=== PATIENT | male | born 1960 | race Caucasian/White ===

== ENCOUNTER 2018-06-30 23:25 | Emergency (ER) | payer OTHER ==
--- OUTSIDE RECORDS SUMMARY | 2018-06-30 23:27 | XMS REPORT ---
:1960 Author Organization eClinicalWorks Care Team Providers Name Role Phone Kristofer Cardoso Provider Role Unavailable Allergies, Adverse Reactions, Alerts Substance Reaction Event Type N.K.D.A. Info Not Available Non Drug Allergy Problems Problem Type Condition Code Onset Dates Condition Status Assessment Need for Tdap vaccination Z23 Active Assessment HTN (hypertension), benign I10 Active Problem Adult BMI 45.0-49.9 kg/sq m Z68.42 Active Problem HTN (hypertension), benign I10 Active Assessment Screening for colon cancer Z12.11 Active Assessment Encounter for screening for other Z11.59 Active viral diseases Assessment Encounter for preventative adult Z00.01 Active health care exam with abnormal findings Assessment Adult BMI 45.0-49.9 kg/sq m Z68.42 Active Medications Medication Code System Code Instructions Start Date End Date Status Dosage Lisinopril [facility] 34864620045 10 MG Orally Once Feb 20, Active 1 tablet a day 2018 Results No Known Results Immunizations Vaccine Administration Date TDAP > 7 Years-Adacel Feb 20, 2018 Summary Purpose eClinicalWorks Submission
--- OUTSIDE RECORDS SUMMARY | 2018-06-30 23:27 | XMS REPORT ---
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 Active Problem Prediabetes R73.03 Active Problem Mixed hyperlipidemia E78.2 Active Assessment HTN (hypertension), benign I10 Active Problem Adult BMI 45.0-49.9 kg/sq m Z68.42 Active Problem HTN (hypertension), benign I10 Active Medications Medication Code Code Instructions Start End Status Dosage System Date Date Aspirin 81 [facility] 74611997830 81 MG Orally Active 1 tablet Once a day Atorvastatin [facility] 86130340524 10 MG Orally Mar 06, Active 1 tablet Calcium Once a day 2017 Lisinopril [facility] 28082281015 10 MG Orally Active 1 tablet Once a day Results No Known Results Summary Purpose eClinicalWorks Submission
--- OUTSIDE RECORDS SUMMARY | 2018-06-30 23:28 | XMS REPORT ---
:1960 Author Organization eClinicalWorks Care Team Providers Name Role Phone Jacky Hillman Provider Role Unavailable Allergies, Adverse Reactions, Alerts Substance Reaction Event Type N.K.D.A. 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
[2018-07-01 01:17] LABS: Absolute Lymphocytes (CBC) 1.7 K/uL (0.7-4.9); Absolute Monocytes 0.7 K/uL (0.1-1.3); Absolute Neutrophil 5.9 K/uL (1.8-8.0); Basophils % 0.9 % (0-1.3); Eosinophils % 0.5 % (0-4.4); MCH 30.7 pg (27.0-35.0); MCV 90.3 fL (80-100); MPV 9.5 fL (7.6-11.3); Monocytes % 8.4 % (3.3-12.3); RBC Red Blood Cell Count 4.76 M/uL (4.33-5.43)
[2018-07-01 01:37] LABS: BUN Blood Urea Nitrogen 13 mg/dL (7-18); Bicarbonate 25 mmol/L (21-32); Glucose Level 113 mg/dL (74-106); Potassium 3.6 mmol/L (3.5-5.1); Sodium Level 139 mmol/L (136-145); Troponin (Emerg Dept Use Only) < 0.02 ng/mL (0.0-0.045)
--- NOTE | 2018-07-01 01:39 | EDPHYS ---
Physician Documentation [facility] Name: Theodore Schaeffer Age: 58 yrs Sex: Male : 1960 Arrival Date: 06/30/2018 Time: 23:28 Bed 15 Private MD: Kaci Cardosoh ED Physician Grupo Blackburn HPI: 07/01 00:51 This 58 yrs old Male presents to ER via Ambulatory with complaints of Blood kb Pressure Problem. 00:51 The patient has elevated blood pressure and discovered this at home, with a home kb device. Onset: The symptoms/episode began/occurred yesterday. Associated signs and symptoms: Pertinent positives: anxiety and palpitations. Severity of symptoms: At its worst the blood pressure was moderate, 183 mm Hg. The patient has not experienced similar symptoms in the past. The patient has not recently seen a physician. Pt reports his daughter called him yesterday and told him she had been in an accident. Reports his bp has been high ever since then. States he laid down tonight to go to sleep and he felt a few palpitations . Historical: - Allergies: 06/30 23:41 No Known Allergies; fc - Home Meds: 23:41 lisinopril 10 mg Oral tab 1 tab once daily [Active]; atorvastatin 10 mg oral tab 1 tab fc once daily [Active]; - PMHx: 23:41 Hypertension; High Cholesterol; fc - PSHx: 23:41 None; fc - Immunization history:: Last tetanus immunization: unknown, Flu vaccine is not up to date. - Social history:: Smoking status: Patient/guardian denies using tobacco, Patient/guardian denies using alcohol. - Ebola Screening: : Patient negative for fever greater than or equal to 101.5 degrees Fahrenheit, and additional compatible Ebola Virus Disease symptoms Patient denies exposure to infectious person Patient denies travel to an Ebola-affected area in the 21 days before illness onset. ROS: 07/01 00:50 Constitutional: Negative for fever, chills, and weight loss, ENT: Negative for injury, kb pain, and discharge, Neck: Negative for injury, pain, and swelling, Respiratory: Negative for shortness of breath, cough, wheezing, and pleuritic chest pain, Abdomen/GI: Negative for abdominal pain, nausea, vomiting, diarrhea, and constipation, Back: Negative for injury and pain, MS/Extremity: Negative for injury and deformity, Skin: Negative for injury, rash, and discoloration, Neuro: Negative for headache, weakness, numbness, tingling, and seizure. Cardiovascular: Positive for palpitations, Negative for chest pain, edema, orthopnea, paroxysmal nocturnal dyspnea. Exam: 00:50 Constitutional: This is a well developed, well nourished patient who is awake, alert, kb and in no acute distress. Head/Face: Normocephalic, atraumatic. ENT: Nares patent. No nasal discharge, no septal abnormalities noted. Tympanic membranes are normal and external auditory canals are clear. Oropharynx with no redness, swelling, or masses, exudates, or evidence of obstruction, uvula midline. Mucous membranes moist. Neck: Trachea midline, no thyromegaly or masses palpated, and no cervical lymphadenopathy. Supple, full range of motion without nuchal rigidity, or vertebral point tenderness. No Meningismus. Chest/axilla: Normal chest wall appearance and motion. Nontender with no deformity. No lesions are appreciated. Cardiovascular: Regular rate and rhythm with a normal S1 and S2. No gallops, murmurs, or rubs. Normal PMI, no JVD. No pulse deficits. Respiratory: Lungs have equal breath sounds bilaterally, clear to auscultation and percussion. No rales, rhonchi or wheezes noted. No increased work of breathing, no retractions or nasal flaring. Abdomen/GI: Soft, non-tender, with normal bowel sounds. No distension or tympany. No guarding or rebound. No evidence of tenderness throughout. Skin: Warm, dry with normal turgor. Normal color with no rashes, no lesions, and no evidence of cellulitis. MS/ Extremity: Pulses equal, no cyanosis. Neurovascular intact. Full, normal range of motion. Neuro: Awake and alert, GCS 15, oriented to person, place, time, and situation. Cranial nerves II-XII grossly intact. Motor strength 5/5 in all extremities. Sensory grossly intact. Cerebellar exam normal. Normal gait. Vital Signs: 06/30 23:37 BP 150 / 108; Pulse 85; Resp 18; Temp 98.4(O); Pulse Ox 96% on R/A; Weight 145.15 kg fc (R); Height 6 ft. 0 in. (182.88 cm) (R); Pain 0/10; 07/01 00:30 BP 133 / 90; Pulse 76; Resp 16; Pulse Ox 97% on R/A; jb4 01:30 BP 123 / 81; Pulse 68; Resp 16; Pulse Ox 99% on R/A; jb4 06/30 23:37 Body Mass Index 43.40 (145.15 kg, 182.88 cm) MDM: 00:06 Patient medically screened. kb 00:50 Data reviewed: vital signs, nurses notes. Data interpreted: Pulse oximetry: on room air kb is 96 %. Interpretation: normal. Counseling: I had a detailed discussion with the patient and/or guardian regarding: the historical points, exam findings, and any diagnostic results supporting the discharge/admit diagnosis, lab results, radiology results, the need for outpatient follow up, a family practitioner, to return to the emergency department if symptoms worsen or persist or if there are any questions or concerns that arise at home. 07/01 00:46 Order name: CBC with Diff; Complete Time: 01:22 kb 07/01 00:46 Order name: Basic Metabolic Panel; Complete Time: 01:37 kb 07/01 00:21 Order name: EKG; Complete Time: 00:22 kb 07/01 00:21 Order name: EKG - Nurse/Tech; Complete Time: 00:23 kb 07/01 00:46 Order name: Troponin (emerg Dept Use Only); Complete Time: 01:37 kb 07/01 00:46 Order name: Chest Single View XRAY kb Administered Medications: No medications were administered Disposition: 07/01/18 01:38 Discharged to Home. Impression: Essential (primary) hypertension. - Condition is Stable. - Discharge Instructions: Hypertension, [id number], Managing Your Hypertension. - Medication Reconciliation Form, Thank You Letter, Antibiotic Education, Prescription Opioid Use form. - Follow up: Emergency Department; When: As needed; Reason: Worsening of condition. Follow up: Private Physician; When: 2 - 3 days; Reason: Recheck today's complaints, Continuance of care, Re-evaluation by your physician. Signatures: Dispatcher [employer] EDIla Edmond, Chacha Bowman RN RN Kameron Kraft RN RN jb4 Corrections: (The following items were deleted from the chart) 01:55 01:38 07/01/2018 01:38 Discharged to Home. Impression: Essential (primary) jb4 hypertension. Condition is Stable. Forms are Medication Reconciliation Form, Thank You Letter, Antibiotic Education, Prescription Opioid Use. Follow up: Emergency Department; When: As needed; Reason: Worsening of condition. Follow up: Private Physician; When: 2 - 3 days; Reason: Recheck today's complaints, Continuance of care, Re-evaluation by your physician. kb
--- NOTE | 2018-07-01 01:39 | ER ---
Nurse's Notes [facility] Name: Theodore Schaeffer Age: 58 yrs Sex: Male : 1960 Arrival Date: 06/30/2018 Time: 23:28 Bed 15 Private MD: Kristofer Cardoso Diagnosis: Essential (primary) hypertension Presentation: 06/30 23:37 Presenting complaint: Patient states: that he noticed yesterday that he was having fc issues with high bp. Denies any pain but states that he gets shaky and cannot sleep. States that he is very anxious and thinks this may be causing his high bp. Transition of care: patient was not received from another setting of care. Onset of symptoms was June 29, 2018. Risk Assessment: Do you want to hurt yourself or someone else? Patient reports no desire to harm self or others. Initial Sepsis Screen: Does the patient meet any 2 criteria? No. Patient's initial sepsis screen is negative. Does the patient have a suspected source of infection? No. Patient's initial sepsis screen is negative. Care prior to arrival: None. 23:37 Method Of Arrival: Ambulatory fc 23:37 Acuity: ABDIRASHID 3 fc Historical: - Allergies: 23:41 No Known Allergies; fc - Home Meds: 23:41 lisinopril 10 mg Oral tab 1 tab once daily [Active]; atorvastatin 10 mg oral tab 1 tab fc once daily [Active]; - PMHx: 23:41 Hypertension; High Cholesterol; fc - PSHx: 23:41 None; fc - Immunization history:: Last tetanus immunization: unknown, Flu vaccine is not up to date. - Social history:: Smoking status: Patient/guardian denies using tobacco, Patient/guardian denies using alcohol. - Ebola Screening: : Patient negative for fever greater than or equal to 101.5 degrees Fahrenheit, and additional compatible Ebola Virus Disease symptoms Patient denies exposure to infectious person Patient denies travel to an Ebola-affected area in the 21 days before illness onset. Screenin/17 00:00 Abuse screen: Denies threats or abuse. Nutritional screening: No deficits noted. jb4 Tuberculosis screening: No symptoms or risk factors identified. Fall Risk None identified. Assessment: 00:05 General: Appears in no apparent distress. uncomfortable, Behavior is cooperative, jb4 anxious. Pain: Denies pain. Neuro: Level of Consciousness is awake, alert, obeys commands, Oriented to person, place, time, situation. Cardiovascular: Heart tones S1 S2 present Patient's skin is warm and dry. Respiratory: Airway is patent Respiratory effort is even, unlabored, Respiratory pattern is regular, symmetrical, Breath sounds are clear bilaterally. GI: No signs and/or symptoms were reported involving the gastrointestinal system. : No signs and/or symptoms were reported regarding the genitourinary system. EENT: No signs and/or symptoms were reported regarding the EENT system. Derm: Skin is intact, Skin is pink, warm \T\ dry. Musculoskeletal: Circulation, motion, and sensation intact. 01:30 Reassessment: Patient appears in no apparent distress at this time. Patient and/or jb4 family updated on plan of care and expected duration. Pain level reassessed. Patient is alert, oriented x 3, equal unlabored respirations, skin warm/dry/pink. 01:53 Reassessment: Patient appears in no apparent distress at this time. Patient and/or jb4 family updated on plan of care and expected duration. Pain level reassessed. Patient is alert, oriented x 3, equal unlabored respirations, skin warm/dry/pink. Discussed D/c, F/u with pt, denies questions or concerns. Vital Signs: 06/30 23:37 BP 150 / 108; Pulse 85; Resp 18; Temp 98.4(O); Pulse Ox 96% on R/A; Weight 145.15 kg fc (R); Height 6 ft. 0 in. (182.88 cm) (R); Pain 0/10; 07/01 00:30 BP 133 / 90; Pulse 76; Resp 16; Pulse Ox 97% on R/A; jb4 01:30 BP 123 / 81; Pulse 68; Resp 16; Pulse Ox 99% on R/A; jb4 06/30 23:37 Body Mass Index 43.40 (145.15 kg, 182.88 cm) ED Course: 06/30 23:28 Patient arrived in ED. es 23:28 Kristofer Cardoso DO is Private Physician. es 23:37 Arm band placed on Patient placed in an exam room, on a stretcher. fc 23:39 Triage completed. 07/01 00:05 Patient has correct armband on for positive identification. Bed in low position. Call jb4 light in reach. Side rails up X 1. Pulse ox on. NIBP on. 00:06 Ila Lagunas FNP-C is PHCP. kb 00:06 Grupo Blackburn MD is Attending Physician. kb 00:15 Kameron Kraft, RN is Primary Nurse. jb4 00:59 X-ray completed. Portable x-ray completed in exam room. Patient tolerated procedure sg4 well. 01:01 Chest Single View XRAY In Process Unspecified. EDMS 01:05 Inserted saline lock: 20 gauge in right antecubital area, using aseptic technique. jb4 01:54 No provider procedures requiring assistance completed. IV discontinued, intact, jb4 bleeding controlled. Administered Medications: No medications were administered Outcome: 01:38 Discharge ordered by . kb 01:50 Discharged to home ambulatory. jb4 01:50 Condition: stable 01:50 Discharge instructions given to patient, Instructed on discharge instructions, follow up and referral plans. Demonstrated understanding of instructions, follow-up care. 01:55 Patient left the ED. jb4 Signatures: Dispatcher [employer] EDVT Ila Lagunas FNP-C FNP-Saba Schneider Felicia, RN RN fc Bryson, James, RN RN [facility] Carey Murray 4 Corrections: (The following items were deleted from the chart) 06/30 23:40 23:37 Presenting complaint: Patient states: that he noticed yesterday that he was fc having issues with high bp. Denies any pain but states that he gets shaky and cannot sleep. fc
--- NOTE | 2018-07-01 07:03 | EKG ---
Test Date: 2018-07-01 Test Time: 00:16:14 Mortgage Field Inspector: LEWIS MEASUREMENT RESULTS: Intervals: Rate: 70 MN: 168 QRSD: 92 QT: 392 QTc: 423 Cartwright: P: 27 MN: 168 QRS: -6 T: 8 INTERPRETIVE STATEMENTS: Normal sinus rhythm Normal ECG No previous ECG available for comparison Electronically Signed On 07-01-18 07:02:53 SEAMAN OFFICER by Darío Be
--- NOTE | 2018-07-01 08:47 | RAD REPORT ---
EXAM DESCRIPTION: Doe Single View07/01/2018 1:01 am CLINICAL HISTORY: Palpitations COMPARISON: none FINDINGS: The lungs appear clear of acute infiltrate. The heart is normal size IMPRESSION: No acute abnormalities displayed
== END 2018-07-01 01:55 | disposition home or self-care (01) ==
LOC: ER 23:25
DX: I10 Essential (primary) hypertension (principal); E78.00 Pure hypercholesterolemia, unspecified
CPT/HCPCS: 36415; 71045; 80048; 84484; 85025; 93005; 99283

== ENCOUNTER 2018-07-05 07:16 | Day surgery (SDC) | payer OTHER ==
[2018-07-05] MEDS ORDERED: Ringers Lactate 1,000 ML IV ONE (07:29)
[2018-07-05] MEDS ORDERED: PROPOFOL 200 MG/20 ML VIAL IV ONE ×2 (08:55)
--- NOTE | 2018-07-05 09:19 | ENDO RPT ---
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 ESTIMATED BLOOD LOSS: None CONSENT: The patient understands the risks and benefits of the procedure and understands that these risks include, but are not limited to: sedation, allergic reaction, infection, perforation and/or bleeding. Alternative means of evaluation and treatment include, among others: physical exam, x-rays, and/or surgical intervention. The patient elects to proceed with this endoscopic procedure. DESCRIPTION OF PROCEDURE: During intra-op preparation period all mechanical medical equipment was checked for proper function. Hand hygiene and appropriate measures for infection prevention was taken. Procedure, possible complications, alternatives including, but not limited to possibility of bleeding, perforation, tear, infection, sepsis, need for surgery, need for blood transfusion, were explained to the patient. After the risks, benefits and alternatives of the procedure were thoroughly explained, Informed consent was verified, confirmed and timeout was successfully executed by the treatment team. The patient was placed in the left lateral position. A digital rectal exam was performed and revealed internal hemorrhoids. After appropriate level of anesthesia, the scope was passed. The EC-[id number] ([id number]) endoscope was introduced through the anus and advanced to the cecum, which was identified by both the appendix and ileocecal valve. The quality of the prep was fair. The instrument was then slowly withdrawn as the colon was fully examined. Scope withdrawal time was 8 minutes. COLON FINDINGS: Moderate sized internal hemorrhoids were found. The colon mucosa was otherwise normal. Retroflexed views revealed medium hemorrhoids. The scope was then completely withdrawn from the patient and the procedure terminated. ADVERSE EVENTS: There were no complications. IMPRESSIONS: 1. Moderate sized internal hemorrhoids 2. The colon mucosa was otherwise normal RECOMMENDATIONS: 1. fiber rich diet 2. yearly hemoccult starting in 4 years 3. hemorrhoidal hygiene RECALL: Return in 10 year(s) for Colonoscopy. Jacky Hillman DR eSigned: Jacky Hillman DR 07/05/2018 9:19 AM cc: CPT CODES: ICD9 CODES: PATIENT NAME: LauryTheodore MR#: [id number]
--- OUTSIDE RECORDS SUMMARY | 2018-07-05 17:49 | XMS REPORT ---
[...] Date End Date Status Dosage Aspirin 81 [facility] 87403224124 81 MG Orally Once Active 1 tablet a day Lisinopril [facility] 04198771296 10 MG Orally Once Feb 20, Active 1 tablet a day 2018 Results No Known Results Summary Purpose eClinicalWorks Submission
--- OUTSIDE RECORDS SUMMARY | 2018-07-05 17:49 | XMS REPORT ---
:1960 Author Organization eClinicalWorks Care Team Providers Name Role Phone Walker Pending [facility] To [facility] Provider Role Unavailable Allergies No Known Allergies [...] Status Dosage System Date Date Aspirin 81 [facility] 88391433295 81 MG Orally Active 1 tablet Once a day Atorvastatin [facility] 92557629571 10 MG Orally Mar 06, Active 1 tablet Calcium Once a day 2017 Lisinopril [facility] 36026936650 10 MG Orally Active 1 tablet Once a day Results No Known Results Summary Purpose eClinicalWorks Submission
--- OUTSIDE RECORDS SUMMARY | 2018-07-05 17:49 | XMS REPORT ---
[...] Start Date End Date Status Dosage Lisinopril [facility] 96100655202 10 MG Orally Once Feb 20, Active 1 tablet a day 2018 Results No Known Results Immunizations Vaccine Administration Date TDAP > 7 Years-Adacel Feb 20, 2018 Summary Purpose eClinicalWorks Submission
== END 2018-07-05 10:15 | disposition home or self-care (01) ==
LOC: OR 07:16
PROVIDERS: ATTEND Surgery
PROC: 0DJD8ZZ Inspection of Lower Intestinal Tract, Via Natural or Artificial Opening Endoscopic (ICD-10-PCS; principal; 2018-07-05 08:45)
DX: Z12.11 Encounter for screening for malignant neoplasm of colon (principal); K64.8 Other hemorrhoids; I10 Essential (primary) hypertension; Z79.899 Other long term (current) drug therapy; Z79.82 Long term (current) use of aspirin
CPT/HCPCS: J2704